=== PATIENT | female | born 1940 | race Caucasian/White ===

== ENCOUNTER 2016-12-21 00:22 | Emergency (ER) | payer MEDICARE, BC ==
[2016-12-21] MEDS ORDERED: SODIUM CHLORIDE 0.9% 1,000 ML IV STA (00:47)
[2016-12-21 01:00] LABS: Glucose,Whole Blood <20 mg/dL (75-99)
[2016-12-21 01:00] LABS: Glucose,Whole Blood 149 mg/dL (75-99)
[2016-12-21 01:30] LABS: Anisocytosis Slight; CH 27.4; HCT 20.3 % (34.0-46.0); HDW 2.53; Hypochromasia Marked; MCV 106.2 fL (80.0-100.0); Macrocytosis Marked; Mean Platelet Volume 7.1; RBC 1.91 m/uL (3.80-5.40); RDW 17.2 % (11.5-15.5); WBC (Perox) 6.21
[2016-12-21 01:33] LABS: MCHC 27.3 g/dL (31.0-37.0)
[2016-12-21 01:35] LABS: Calcium 9.5 mg/dL (8.4-10.2); HGB 5.5 gm/dL (11.4-16.0); INR 1.6 (<1.1); Magnesium 2.9 mg/dL (1.6-2.3); Partial Thromboplastin Time 35.7 sec (22.0-30.0); Prothrombin Time 15.2 sec (9.0-12.0); Total Bilirubin 0.3 mg/dL (0.2-1.3); Total Protein 4.7 g/dL (6.3-8.2)
--- NOTE | 2016-12-21 01:44 | XR ---
EXAMINATION TYPE: XR chest 1V portable DATE OF EXAM: 12/21/2016 1:34 AM COMPARISON: 03/27/2016 HISTORY: Shortness of breath 2 days history of bloody nose. TECHNIQUE: Single frontal view of the chest is obtained. FINDINGS: ET tube is noted in place with its tip 2 cm above the fabien. NG tube is noted in place with its tip at the gastroesophageal junction and it has to be advanced at least by 15 cm. There is suggestion of mild CHF changes. There is no focal air space opacity, pleural effusion, or pneumothorax seen. There is mild cardiomega ly.. The osseous structures are intact. IMPRESSION: 1. NG tube is noted in place with its tip at the GE junction. It has to be advanced into the stomach at least by 15 cm. 2. ET tube is noted in place with its tip 2 cm above the fabien. 3. Mild CHF changes. 4. Cardiomegaly.
[2016-12-21 01:45] LABS: Potassium 6.7 mmol/L (3.5-5.1)
[2016-12-21 01:47] LABS: Creatine Kinase MB 1.2 ng/mL (0.0-2.4); Troponin I 0.029 ng/mL (0.000-0.034)
[2016-12-21 02:03] LABS: Add Differential Manual Differential
[2016-12-21] MEDS ORDERED: LEVOFLOXACIN 750 MG TAB PO STA (02:04)
[2016-12-21] MEDS ORDERED: PIPERACILLIN-TAZOBACTAM 3.375 GM in DEXTROSE/WATER 1 50ML.BAG IVPB STA (02:04)
[2016-12-21 02:05] LABS: Manual Review Performed; Nucleated Red Blood Cells 4 /100 WBC (0-0); Total Cells Counted 200; WBC 6.1 k/uL (3.8-10.6)
[2016-12-21 02:06] LABS: Polychromasia Present
[2016-12-21 02:56] VITALS: PULSE 0; RESP 0; TEMP 95.8
--- NOTE | 2016-12-21 07:28 | ED ---
CPR HPI - General Chief Complaint: Cardiac Arrest/CPR Stated Complaint: LINDA Time Seen by Provider: 12/21/16 00:47 Source: EMS Mode of arrival: EMS Limitations: altered mental status, physical limitation - History of Present Illness Initial Comments: This patient is a 76-year-old woman brought here by EMS. EMS had been called to the patient's residence for a nosebleed. They arrived to find the patient in distress, not able to give much history, seeming to have some dyspnea and restlessness. They transported the patient here, and during transportation, the patient lost consciousness, and then lost vital signs. EMS initiated ACLS protocol, implementing Bag valve mask ventilation, chest compressions, starting in the intraosseous line. On arrival the patient is not able to give any history as she is unresponsive. MD Complaint: stopped breathing -: minute(s) Place: home Initial Findings in the Field: lethargic ROSC in the Field: No Associated Injuries: No Associated Symptoms: shortness of breath Treatments Prior to Arrival: BMV, chest compressions - Related Data Home Medications Medication Instructions Recorded Confirmed Aspirin EC [Ecotrin Low Dose] 81 mg PO DAILY 12/03/14 05/25/15 Atenolol [Tenormin] 50 mg PO DAILY 12/03/14 05/25/15 Acetaminophen Tab [Tylenol] 650 mg PO Q4H PRN 03/07/15 05/25/15 Albuterol Inhaler [Ventolin Hfa 2 puff INHALATION RT-Q6H PRN 03/07/15 05/25/15 Inhaler] Arformoterol Tartrate [Brovana] 2 ml INHALATION RT-DAILY PRN 03/07/15 05/25/15 Famotidine [Pepcid] 10 mg PO BID 03/07/15 05/25/15 Pravastatin Sodium [Pravachol] 40 mg PO HS 03/07/15 05/25/15 Budesonide [Pulmicort] 2 ml INHALATION RT-BID 03/08/15 05/25/15 Ipratropium-Albuterol Nebulize 3 ml IH QID 03/28/15 05/25/15 [Duoneb 0.5 mg-3 mg/3 ml Soln] Losartan-Hctz 50-12.5 mg [Hyzaar 1 each PO DAILY 03/28/15 05/25/15 50-12.5] Melatonin 5 mg PO HS 03/28/15 05/25/15 Sodium Chloride [Saline Nasal Mist] 2 ml NS QID PRN 04/16/15 05/25/15 Previous Rx's Medication Instructions Recorded Rivaroxaban [Xarelto] 15 mg PO BID-W/MEALS #60 tab 04/03/15 Donepezil [Aricept] 5 mg PO HS #30 tab 04/19/15 Nortriptyline [Pamelor] 100 mg PO HS #30 cap 04/19/15 clonazePAM [KlonoPIN] 0.5 mg PO QID #120 tab 04/19/15 traMADol HCL [Ultram] 100 mg PO Q6HR PRN #90 tablet 04/19/15 Allergies Allergy/AdvReac Type Severity Reaction Status Date / Time No Known Allergies Allergy Verified 04/16/15 17:21 Review of Systems ROS Statement: Those systems with pertinent positive or pertinent negative responses have been documented in the HPI. ROS Other: All systems not noted in ROS Statement are negative. Limitations: ROS unobtainable due to patients medical condition Past Medical History Past Medical History: COPD Additional Past Medical History / Comment(s): 03/07/15 PNEUMONITIS, RESP FAILURE COPD. 03-28-15 ADMITTED TO [facility] W/ WEAKNESS.04/16/15 ADMITTED WITH ALTERED MENTAL STATUS.poor circulaton, emphysema, psoriases,hiatal hernia, ulcer,02 dependant, INCONT. OF URINE History of Any Multi-Drug Resistant Organisms: None Reported Past Surgical History: Hysterectomy Additional Past Surgical History / Comment(s): RIGHT HIP REPLACEMENT, LEFT KNEE REPLACEMENT, RIGHT LOWER LEG FX, DENTURES,egd, rt breast biopsy. Past Anesthesia/Blood Transfusion Reactions: Previous Problems w/ Anesthesia Additional Past Anesthesia/Blood Transfusion Reaction / Comment(s): PER DR. PAK, "CANNOT BE PUT UNDER GENERAL ANESTHESIA, ONLY CONSCIOUS SEDATION WITH A SPINAL DUE TO HER LUNG FUNCTION". Past Psychological History: Anxiety, Depression Smoking Status: Former smoker Past Alcohol Use History: None Reported Past Drug Use History: None Reported - Past Family History Father Additional Family Medical History / Comment(s): BONE CANCER General Exam Limitations: altered mental status, physical limitation General appearance: obese, other (Unresponsive) Head exam: Present: atraumatic Eye exam: Present: other (Pupils are not reactive. No blink reflex.) Pupils: Present: mydriatic ENT exam: Present: mucous membranes dry, other (There is pallor of the mucous membranes) Neck exam: Absent: tenderness, other (no palpable deformity or step-off) Respiratory exam: Present: rhonchi, other (There is no spontaneous inspiratory effort. There are scattered rhonchi that he. There is no apparent chest wall trauma.) Cardiovascular Exam: Present: other (No palpable PMI. No cardiac sounds. No detectable pulses or blood pressure). Absent: normal heart sounds, systolic murmur, diastolic murmur, rubs, gallop, clicks, S3, S4 GI/Abdominal exam: Present: other (No apparent abdominal trauma. No masses though the exam is limited by obesity) Extremities exam: Present: other (No apparent extremity trauma.). Absent: pedal edema Back exam: Present: normal inspection, other (No bony deformity or step-off) Neurological exam: Present: other (GCS is 3. No deep tendon or cranial nerve reflexes) Skin exam: Present: dry, intact, pallor. Absent: normal color, rash Course Vital Signs 12/21/16 00:23 Temperature 95.8 F L Pulse Rate 0 L Respiratory 0 L Rate Procedures - Central Line Placement Right Femoral Consent Obtained: emergent situation Patient Placed on Monitor/Pulse Ox: Yes MD Prep: mask, gown, gloves Central Line Prep: Chlorhexidine scrub, sterile drapes applied Local Anesthesia Used: Lidocaine 1% Central Line Lumen Inserted: triple Bloods Obtained for Lab: Yes Central Line Position: good blood return, all ports aspirated, flushed, capped, sutured in place with 2-0 silk Dressing Applied: Tegaderm Patient Tolerated Procedure: no complications Complications: none - Intubation Laryngoscope: Dana Size: 3 ET Tube Size: 7.5 Tube Placement Confirmation: visualized tube passing through cords, equal breath sounds bilaterally, no breath sounds over epigastrium, confirmation by capnometry Patient Tolerated Procedure: no complications Intubation Complications: none Medical Decision Making - Medical Decision Making Patient is a 76-year-old woman who had cardiac arrest during transport here. ACLS protocol continued, please see the code sheet for medication details. The patient initially found to be in what appeared to be PEA, and ACLS continued. V. fib was then noted then patient had defibrillation. Finally there was return of circulation. Patient intubated and central line placed see the procedure notes. Labs sent. EKG obtained suggesting possibility of hyperkalemia. The patient did have calcium, bicarb, dextrose. Patient's then bradyed down and lost pulses and ACLS performed again with return of circulation. Further fluids and medication for hyperkalemia given. There is severe lactic acidosis and additional bicarb given. Multiple liters of fluid bolus given. Patient's hemoglobin returned low and blood ordered. Patient became unresponsive to pressors, becoming more hypotensive and bradycardic, and did not respond epinephrine. Patient pronounced at 245 and discussed with the medical sales consultant who will release the body for disposition. - Lab Data Result diagrams: 12/21/16 00:44 12/21/16 00:44 Lab Results 12/21/16 12/21/16 12/21/16 Range/Units 00:44 00:44 00:44 WBC 6.1 (3.8-10.6) k/uL RBC 1.91 L (3.80-5.40) m/uL Hgb 5.5 L* (11.4-16.0) gm/dL Hct 20.3 L (34.0-46.0) % MCV 106.2 H (80.0-100.0) fL MCH 29.0 (25.0-35.0) pg MCHC 27.3 L (31.0-37.0) g/dL RDW 17.2 H (11.5-15.5) % Plt Count 94 L (150-450) k/uL Neutrophils % Not Reportable Neutrophils % (Manual) 65.5 % Lymphocytes % Not Reportable Lymphocytes % (Manual) 30.5 % Monocytes % Not Reportable Eosinophils % Not Reportable Basophils % Not Reportable Metamyelocytes % 1.0 % Myelocytes % 3.0 % Neutrophils # Not Reportable Neutrophils # (Manual) 4.0 (1.3-7.7) k/uL Lymphocytes # Not Reportable Lymphocytes # (Manual) 1.9 (1.0-4.8) k/uL Monocytes # Not Reportable Eosinophils # Not Reportable Basophils # Not Reportable Nucleated RBCs 4 H (0-0) /100 WBC Manual Slide Review Performed Polychromasia Present Hypochromasia Marked Anisocytosis Slight Macrocytosis Marked PT (9.0-12.0) sec INR (<1.1) APTT (22.0-30.0) sec Sodium 143 (137-145) mmol/L Potassium 6.7 H* (3.5-5.1) mmol/L Chloride 100 (98-107) mmol/L Carbon Dioxide 23 (22-30) mmol/L Anion Gap 20 mmol/L BUN 57 H (7-17) mg/dL Creatinine 1.90 H (0.52-1.04) mg/dL Est GFR (MDRD) Af Amer 31 (>60 ml/min/1.73 sqM) Est GFR (MDRD) Non-Af 26 (>60 ml/min/1.73 sqM) Glucose 352 H (74-99) mg/dL POC Glucose (mg/dL) (75-99) mg/dL POC Glu Cad Specialist ID Plasma Lactic Acid Mukesh (0.7-2.0) mmol/L Calcium 9.5 (8.4-10.2) mg/dL Magnesium 2.9 H (1.6-2.3) mg/dL Total Bilirubin 0.3 (0.2-1.3) mg/dL AST 69 H (14-36) U/L ALT 59 H (9-52) U/L Alkaline Phosphatase 39 (38-126) U/L Total Creatine Kinase 29 L (30-135) U/L CK-MB (CK-2) 1.2 (0.0-2.4) ng/mL CK-MB (CK-2) Rel Index 4.1 Troponin I 0.029 (0.000-0.034) ng/mL Total Protein 4.7 L (6.3-8.2) g/dL Albumin 2.7 L (3.5-5.0) g/dL Blood Type Blood Type Recheck Antibody Screen Crossmatch Spec Expiration Date 12/21/16 12/21/16 12/21/16 Range/Units 00:44 00:44 00:44 WBC (3.8-10.6) k/uL RBC (3.80-5.40) m/uL Hgb (11.4-16.0) gm/dL Hct (34.0-46.0) % MCV (80.0-100.0) fL MCH (25.0-35.0) pg MCHC (31.0-37.0) g/dL RDW (11.5-15.5) % Plt Count (150-450) k/uL Neutrophils % Neutrophils % (Manual) % Lymphocytes % Lymphocytes % (Manual) % Monocytes % Eosinophils % Basophils % Metamyelocytes % % Myelocytes % % Neutrophils # Neutrophils # (Manual) (1.3-7.7) k/uL Lymphocytes # Lymphocytes # (Manual) (1.0-4.8) k/uL Monocytes # Eosinophils # Basophils # Nucleated RBCs (0-0) /100 WBC Manual Slide Review Polychromasia Hypochromasia Anisocytosis Macrocytosis PT 15.2 H (9.0-12.0) sec INR 1.6 (<1.1) APTT 35.7 H (22.0-30.0) sec Sodium (137-145) mmol/L Potassium (3.5-5.1) mmol/L Chloride (98-107) mmol/L Carbon Dioxide (22-30) mmol/L Anion Gap mmol/L BUN (7-17) mg/dL Creatinine (0.52-1.04) mg/dL Est GFR (MDRD) Af Amer (>60 ml/min/1.73 sqM) Est GFR (MDRD) Non-Af (>60 ml/min/1.73 sqM) Glucose (74-99) mg/dL POC Glucose (mg/dL) (75-99) mg/dL POC Glu Cad Specialist ID Plasma Lactic Acid Mukesh 13.7 H* (0.7-2.0) mmol/L Calcium (8.4-10.2) mg/dL Magnesium (1.6-2.3) mg/dL Total Bilirubin (0.2-1.3) mg/dL AST (14-36) U/L ALT (9-52) U/L Alkaline Phosphatase (38-126) U/L Total Creatine Kinase (30-135) U/L CK-MB (CK-2) (0.0-2.4) ng/mL CK-MB (CK-2) Rel Index Troponin I (0.000-0.034) ng/mL Total Protein (6.3-8.2) g/dL Albumin (3.5-5.0) g/dL Blood Type A Positive Blood Type Recheck No Antibody Screen NEGATIVE Crossmatch See Detail Spec Expiration Date 12/24/2016 1422 12/21/16 12/21/16 Range/Units 00:58 00:59 WBC (3.8-10.6) k/uL RBC (3.80-5.40) m/uL Hgb (11.4-16.0) gm/dL Hct (34.0-46.0) % MCV (80.0-100.0) fL MCH (25.0-35.0) pg MCHC (31.0-37.0) g/dL RDW (11.5-15.5) % Plt Count (150-450) k/uL Neutrophils % Neutrophils % (Manual) % Lymphocytes % Lymphocytes % (Manual) % Monocytes % Eosinophils % Basophils % Metamyelocytes % % Myelocytes % % Neutrophils # Neutrophils # (Manual) (1.3-7.7) k/uL Lymphocytes # Lymphocytes # (Manual) (1.0-4.8) k/uL Monocytes # Eosinophils # Basophils # Nucleated RBCs (0-0) /100 WBC Manual Slide Review Polychromasia Hypochromasia Anisocytosis Macrocytosis PT (9.0-12.0) sec INR (<1.1) APTT (22.0-30.0) sec Sodium (137-145) mmol/L Potassium (3.5-5.1) mmol/L Chloride (98-107) mmol/L Carbon Dioxide (22-30) mmol/L Anion Gap mmol/L BUN (7-17) mg/dL Creatinine (0.52-1.04) mg/dL Est GFR (MDRD) Af Amer (>60 ml/min/1.73 sqM) Est GFR (MDRD) Non-Af (>60 ml/min/1.73 sqM) Glucose (74-99) mg/dL POC Glucose (mg/dL) <20 L 149 H (75-99) mg/dL POC Glu Cad Specialist ID Daniela Castillo A Hulshof, Maggie, A Plasma Lactic Acid Mukesh (0.7-2.0) mmol/L Calcium (8.4-10.2) mg/dL Magnesium (1.6-2.3) mg/dL Total Bilirubin (0.2-1.3) mg/dL AST (14-36) U/L ALT (9-52) U/L Alkaline Phosphatase (38-126) U/L Total Creatine Kinase (30-135) U/L CK-MB (CK-2) (0.0-2.4) ng/mL CK-MB (CK-2) Rel Index Troponin I (0.000-0.034) ng/mL Total Protein (6.3-8.2) g/dL Albumin (3.5-5.0) g/dL Blood Type Blood Type Recheck Antibody Screen Crossmatch Spec Expiration Date Critical Care Time Critical Care Time: Yes (90) Disposition Clinical Impression: Cardiac arrest Disposition: Condition: Critical Referrals: Vinh Narayanan MD [Primary Care Provider] - 1-2 days Preliminary Cause of : Cardiopulmonary arrest
[2016-12-21] MEDS ORDERED: SODIUM BICARB 8.4% 50 ML SYR (1 MEQ/ML) ONE (11:58)
[2016-12-21] MEDS ORDERED: DEXTROSE 50%-WATER 50 ML SYRINGE IVP ONE (11:58)
[2016-12-21] MEDS ORDERED: CALCIUM CHLORIDE 100 MG/ML 10 ML SYRINGE ONE (11:58)
[2016-12-21] MEDS ORDERED: DEXTROSE 5% IN WATER 50 ML BAG ONE (11:58)
[2016-12-21] MEDS ORDERED: EPINEPHrine 10 ML SYRINGE (0.1 MG/ML) ONE (11:58)
[2016-12-21] MEDS ORDERED: AMIODARONE 50 MG/ML 3 ML VIAL IV ONE (11:58)
[2016-12-22] MEDS ORDERED: AMIODARONE 50 MG/ML 3 ML VIAL IV ONE (10:05)
[2016-12-22] MEDS ORDERED: DEXTROSE 50%-WATER 50 ML SYRINGE IVP ONE (10:05)
[2016-12-22] MEDS ORDERED: SODIUM BICARB 8.4% 50 ML SYR (1 MEQ/ML) ONE (10:05)
[2016-12-22] MEDS ORDERED: EPINEPHrine 10 ML SYRINGE (0.1 MG/ML) ONE (10:05)
[2016-12-22] MEDS ORDERED: CALCIUM CHLORIDE 100 MG/ML 10 ML SYRINGE ONE (10:05)
[2016-12-22] MEDS ORDERED: DEXTROSE 5% IN WATER 50 ML BAG ONE (10:05)
== END 2016-12-21 04:58 | disposition expired ==
LOC: EC 00:22
DX: I46.9 Cardiac arrest, cause unspecified (principal); J44.9 Chronic obstructive pulmonary disease, unspecified; Z99.81 Dependence on supplemental oxygen; F41.9 Anxiety disorder, unspecified; E87.2 Acidosis; F32.9 Major depressive disorder, single episode, unspecified; R40.2430 Glasgow coma scale score 3-8, unspecified time; E87.5 Hyperkalemia; Z87.891 Personal history of nicotine dependence; Z79.82 Long term (current) use of aspirin; Z79.51 Long term (current) use of inhaled steroids; Z79.01 Long term (current) use of anticoagulants; Z79.899 Other long term (current) drug therapy; Z87.01 Personal history of pneumonia (recurrent)
CPT/HCPCS: 31500 ×2; 92950 ×2; 99291 ×2; 99292 ×2; 36556 ×2; 36415; 94002; 86900; 86901; 80053; 82550; 82553; 83605; 83735; 84484; 85025; 85610; 85730; 86850; 86920; 71010; J0282; J0171; 93005